=== PATIENT | female | born 1955 | race Asian ===

== ENCOUNTER 2019-12-22 20:55 | Inpatient (IN) | payer OTHER ==
[~2019-12-22] VITALS: Ht 160 cm; Wt 59.7 kg
--- NOTE | 2019-12-22 21:03 | NUR ---
PT DAUGHTER JAYESH JUAREZ [phone] AVAILABLE TO TRANSLATE.
[2019-12-22 21:09] VITALS: Ht 160 cm; Wt 59.7 kg
--- NOTE | 2019-12-22 21:19 | NUR ---
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 PER MEDICS PTS FAMILY REPORT PT WAS EATING DINNER WHEN SHE HAD A SUDDEN LOC. PER MEDICS FAMILY ASSISTED PT OUT OF HER CHAIR TO THE FLOOR. MEDICS DENY ANY REPORTS OF SEIZURE LIKE ACTIVITY. MEDICS REPORT THAT PT HAD ONE EPISODE OF VOMITING. UPON ARRIVAL PT NOTED TO BE COUGHING UP FOOD. PTS LUNG SOUNDS CLEAR TO AUSCULATION. PT O2 SAT 100% ON RA. PT IS ALERT, RESP ARE E/U. NO ACUTE DISTRESS NOTED.
[2019-12-22 21:50] LABS: BASOPHIL % 0.7 % (0-2); PLATELET COUNT 163 x10^3mcL (130-400); RED CELL DISTRIBUTION WIDTH 12.4 % (11.5-14.5)
[2019-12-22 22:12] LABS: ALKALINE PHOSPHATASE 34 U/L (46-116); ALT/SGPT 30 U/L (14-59); AST/SGOT 44 U/L (15-37); BILIRUBIN TOTAL 0.8 mg/dL (0.20-1.00); CALCIUM 8.2 mg/dL (8.5-10.1); CARBON DIOXIDE 23.5 mmol/L (21-32); CHLORIDE SERUM 78 mmol/L (98-107); CREATININE SERUM 0.8 mg/dL (0.6-1.0); GFR1 > 60 mL/min; GLUCOSE SERUM 124 mg/dL (74-106); MAGNESIUM 1.6 mg/dL (1.8-2.4); POTASSIUM SERUM 3.7 mmol/L (3.5-5.1); TOTAL PROTEIN, SERUM 7.5 g/dL (6.4-8.2)
[2019-12-22 22:16] LABS: SODIUM SERUM 111 mmol/L (136-145)
--- NOTE | 2019-12-22 23:52 | NUR ---
GAVE UPDATE TO PTS DAUGHTER JAYESH. INFOMRED JAYESH THAT PT WILL BE ADMITTED INTO THE HOSPITAL. JAYESH VERBALIZES UNDERSTANDING. JAYESH REPORTS THAT PT DOES NOT TAKE ANY DAILY MEDICATIONS AT HOME.
[2019-12-23] VITALS (7 sets, daily range): BP systolic 100–154; BP diastolic 63–91
--- NOTE | 2019-12-23 00:07 | NUR ---
REPORT GIVEN TO ZOILA BISWAS TO ASSUME CARE OF PT.
[2019-12-23 00:18] LABS: CREATININE UR 18.7 mg/dL (0.60-1.80)
[2019-12-23 01:14] LABS: CHOLESTEROL/HDL RATIO 4.2
[2019-12-23 01:18] LABS: FREE T4 0.44 ng/dL (0.76-1.46)
[2019-12-23 01:19] LABS: T3 TOTAL 0.6 ng/mL
--- NOTE | 2019-12-23 01:20 | NUR ---
RECEIVED PATIENT FROM ER NURSE. PATIENT ACCOMPANIED BY ER NURSE. NO ACUTE DISTRESS. UNABLE TO ASSESS ORIENTATION, PATIENT UNWILLING TO SPEAK. USED EXECUTIVE CHAIRMAN PHONES AND PATIENT UNWILLING TO COOPERATE. PATIENT HAS EVEN AND UNLABORED BREATHING, NO S/S OF SOB, CHEST PAIN OR CHEST PRESSURE AT THIS TIME. ROOM AIR. TELE #[address]. NO EDEMA NOTED, PULSES+ X4. NO WOUNDS SEEN ON PATIENT. LUNGS CTA. BOWEL SOUNDS PRESENT X4. ABD SOFT/ROUND, NO S/S OF PAIN UPON PALPATION. NO C/O PAIN AT THIS TIME. RAC IV WNL. FLUSHING WELL AND GOOD BLOOD RETURN. NO ERYTHEMA/EDEMA AT IV SITE. BED IN LOWEST POSITION. CALL LIGHT WITHIN REACH.
[2019-12-23 01:26] LABS: FREE THYROXINE INDEX 0.4 ug/dL (1.4-4.5); T4(THYROXINE) 1.5 ug/dL (4.7-13.3)
--- NOTE | 2019-12-23 02:00 | NUR ---
NOTIFIED DR SINGH ABOUT PATIENTS MAG 1.6 AND NA 111. NO FURTHER ORDERS AT THIS TIME.
--- NOTE | 2019-12-23 04:22 | NUR ---
RAC ACCIDENTLY PULLED OUT BY THE PATIENT. REMOVED AND COVERED WITH GAUZE. TIP INTACT. NO ERYTHEMA/EDEMA AT SITE.
--- NOTE | 2019-12-23 06:09 | NUR ---
PATIENT SLEPT ALL NIGHT, CURRENTLY SLEEPING COMFORTABLY. EVEN AND UNLABORED BREATHING, ON ROOM AIR. NO DISTRESS. FLUIDS INFUSING WELL. TOLERATED MEDICATIONS WELL. TELE #[address] BED IN LOWEST POSITION. CALL LIGHT WITHIN REACH. WILL ENDORSE CARE TO ONCOMING SHIFT. WILL CONTINUE TO MONITOR.
--- NOTE | 2019-12-23 07:30 | NUR ---
PATIENT WAS FOUND AWAKE, BUT DOES NOT ANSWER QUESTIONS. NO OTHER NEUROLOGICAL DEFICIT NOTED. TELE #11, NSR ,DENIES CHEST PAIN. PERIPHERAL PULSES PALPABLE W/ NO SIGNS OF EDEMA. LUNG SOUNDS DIMINISHED BILATERALLY, ON RA, O2 SAT 98%, DENIES SOB. NORMOACTIVE BSX4, ABD SOFT AND FLAT. VOIDS USING RESTROOM. REQUIRES ASSISTANCE IN AMBULATING TO RESTROOM. GENERALIZED WEAKNESS. SKIN IS INTACT. DENIES PAIN OR DISCOMFORT. IV SITE IS CDI. WILL CONTINUE TO MONITOR PATIENT.
[2019-12-23 09:45] LABS: CALCIUM 8.6 mg/dL (8.5-10.1); CARBON DIOXIDE 18.2 mmol/L (21-32); CHLORIDE SERUM 78 mmol/L (98-107); CREATININE SERUM 0.7 mg/dL (0.6-1.0); GFR1 > 60 mL/min; GLUCOSE SERUM 92 mg/dL (74-106); POTASSIUM SERUM 4.3 mmol/L (3.5-5.1)
[2019-12-23 09:52] LABS: SODIUM SERUM 111 mmol/L (136-145)
--- NOTE | 2019-12-23 14:23 | NUR ---
PER DR. BARKER AFTER ASSESSING PATIENT, ORDERED FOR STRICT I&O's, FLUIDS RATE TO DECREASED TO 40 ML/HR, AND BMP TO BE RECHECKED EVERY 3 HOURS. NO FURTHER ORDERS AT THIS TIME
[2019-12-23 16:07] LABS: CALCIUM 7.8 mg/dL (8.5-10.1); CARBON DIOXIDE 21.7 mmol/L (21-32); CHLORIDE SERUM 83 mmol/L (98-107); CREATININE SERUM 0.8 mg/dL (0.6-1.0); GFR1 > 60 mL/min; GLUCOSE SERUM 117 mg/dL (74-106)
[2019-12-23 16:08] LABS: SODIUM SERUM 114 mmol/L (136-145)
--- NOTE | 2019-12-23 18:34 | NUR ---
PATIENT IS CURRENTLY RESTING IN BED AT THIS TIME. PATIENT DENIES ANY PAIN OR DISCOMFORT AT THIS TIME. PATIENT EATS VERY MINIMALLY SHE REFUSES TO EAT MUCH OF HER DINNER. OTHERWISE, PATIENT IS COMFORTABLY AND LAB IS DRAWING Na+ SERUM LEVELS AT THIS TIME. WILL ENDORSE TO FOOD SAFETY OFFICER.
[2019-12-23 19:21] LABS: CALCIUM 7.7 mg/dL (8.5-10.1); CARBON DIOXIDE 23.6 mmol/L (21-32); CHLORIDE SERUM 86 mmol/L (98-107); CREATININE SERUM 0.8 mg/dL (0.6-1.0); GFR1 > 60 mL/min; GLUCOSE SERUM 90 mg/dL (74-106); POTASSIUM SERUM 4.2 mmol/L (3.5-5.1)
[2019-12-23 19:24] LABS: SODIUM SERUM 117 mmol/L (136-145)
--- NOTE | 2019-12-23 19:45 | NUR ---
BEDSIDE REPORT FROM DAY NURSE. PT AWAKE, ALERT TO NAME. PT MADARIN SPEAKING. NO S/S OF DISTRESS OR DISCOMFORT. BRETHING EVEN AT ROOM AIR 98% SPO2. PATIENT DOES HAVE A NON PRODUCTIVE COUGH AT THIS TIME. GEN WEAKNESS, PT ABLE TO WALK TO THE RESTROOM WITH ASSISTANCE. IV RH 22G, INTACT RUNNINF FLUIDS, NO S/S OF INFILTRATION. TELE 11 NSR AT THIS TIME. NO WOUNDS SKIN INTACT CLEAR. STRONG PEDAL AND RADIAL PULSES. NO EDEMA. BED IN LOW POSITION, SIDE RAILS UPX2, CALL LIGHT WITHIN REACH.
[2019-12-23 22:15] LABS: CALCIUM 7.7 mg/dL (8.5-10.1); CARBON DIOXIDE 21.6 mmol/L (21-32); CHLORIDE SERUM 88 mmol/L (98-107); CREATININE SERUM 0.8 mg/dL (0.6-1.0); GFR1 > 60 mL/min; GLUCOSE SERUM 110 mg/dL (74-106)
[2019-12-23 22:18] LABS: SODIUM SERUM 119 mmol/L (136-145)
--- NOTE | 2019-12-24 02:14 | NUR ---
PT RESTING , EYES CLOSED. BREATHING EVEN ON RA. LUNGS CTA SPO2 97% TELE 11 SR AT THIS TIME. IV RH C/D/I RUNNING FLUIDS. PT ABLE TO USE THE CALL LIGHT WHEN SHE NEED ASSISTANCE TO THE RESTROOM. BED IN LOW POSITION, SIDE RAILS UPX2, CALL LIGHT WITHIN REACH, ROOM CLUTTER FREE.
--- NOTE | 2019-12-24 06:22 | NUR ---
PT RESTING EYES CLOSED. NO S/S OF DISTRESS OR DISCOMFORT. IV INTACT RUNNING FLUIDS 40ML/HR. PT BREATHING EVEN ON RA SPO2 98% PT ABLE TO USE THE CALL LIGHT TO ASK FOR HELP TO THE RESTROOM. NO REPORTS FROM TELE. NSR. BED IN LOW POSITION, SIDE RAILS UPX2, CALL LIGHT WITHIN REACH.
[2019-12-24 06:25] VITALS: BP 98/58
--- NOTE | 2019-12-24 07:30 | NUR ---
PATIENT IS A&OX4, FOLLOWS COMMANDS AND COOPERATES WELL. TELE #11, NSR, DENIES CHEST PAIN. PERIPHERAL PULSES PALPABLE W/ NO SIGNS OF EDEMA. LUNG SOUNDS DIMINISHED BILATERALLY, HAS COUGH, ON RA, O2 SAT 98%. NORMOACTIVE BSX4, ABD SOFT AND FLAT, DENIES ABD PAIN. VOIDS USING URINAL. AMBULATES WITH ASSIST. GENERALIZED WEAKNESS. SKIN IS CDI. DENIES PAIN OR DISCOMFORT AT THIS TIME. IV 3% NaCl IS INFUSING AT THIS TIME. R HAND IV IS CDI. WILL CONTINUE TO MONITOR PATIENT.
[2019-12-24 07:40] LABS: CARBON DIOXIDE 20.4 mmol/L (21-32); CHLORIDE SERUM 95 mmol/L (98-107); CREATININE SERUM 0.7 mg/dL (0.6-1.0); GFR1 > 60 mL/min; GLUCOSE SERUM 78 mg/dL (74-106); POTASSIUM SERUM 4.1 mmol/L (3.5-5.1); SODIUM SERUM 127 mmol/L (136-145)
[2019-12-24 08:46] VITALS: BP 104/60
[2019-12-24 10:49] LABS: MAGNESIUM 2.2 mg/dL (1.8-2.4); PHOSPHOROUS 2.7 mg/dL (2.5-4.9)
[2019-12-24 10:57] LABS: BASOPHIL % 0.4 % (0-2); PLATELET COUNT 194 x10^3mcL (130-400); RED CELL DISTRIBUTION WIDTH 12.7 % (11.5-14.5)
--- NOTE | 2019-12-24 11:39 | NUR ---
PATIENT'S DAUGHTER CALLED AND INQUIRED PATIENT STATUS. ALL QUESTIONS AND CONCERNS HAVE BEEN ADDRESSED. PATIENT DENIES ANY PAIN OR DISCOMFORT AT THIS TIME. WILL CONTINUE TO MONITOR PATIENT.
[2019-12-24 13:18] VITALS: BP 131/72
--- NOTE | 2019-12-24 14:08 | NUR ---
DR. SOLIMAN VISITED PATIENT ASSESSED PATIENT STATUS. ALL QUESTIONS AND CONCERNS HAVE BEEN ADDRESSED. ORDERED STAT BMP AND PLACED AN ORDER FOR BMP TO BE CHECKED TOMORROW MORNING. NO FURTHER ORDERS AT THIS TIME.
[2019-12-24 15:02] LABS: CALCIUM 8.2 mg/dL (8.5-10.1); CARBON DIOXIDE 20.4 mmol/L (21-32); CHLORIDE SERUM 94 mmol/L (98-107); CREATININE SERUM 0.8 mg/dL (0.6-1.0); GFR1 > 60 mL/min; GLUCOSE SERUM 115 mg/dL (74-106); POTASSIUM SERUM 3.9 mmol/L (3.5-5.1); SODIUM SERUM 126 mmol/L (136-145)
[2019-12-24 16:45] VITALS: BP 105/59
[2019-12-24 18:29] LABS: CALCIUM 8.1 mg/dL (8.5-10.1); CARBON DIOXIDE 22.2 mmol/L (21-32); CHLORIDE SERUM 93 mmol/L (98-107); CREATININE SERUM 0.9 mg/dL (0.6-1.0); GFR1 > 60 mL/min; GLUCOSE SERUM 110 mg/dL (74-106); POTASSIUM SERUM 4.2 mmol/L (3.5-5.1); SODIUM SERUM 126 mmol/L (136-145)
--- NOTE | 2019-12-24 18:41 | NUR ---
PATIENT IS CURRENTLY RESTING IN BED AT THIS TIME. PATIENT DENIES ANY PAIN OR DISCOMFORT. WILL CONTINUE TO MONITOR PATIENT.
--- NOTE | 2019-12-24 19:57 | NUR ---
REPORT FROM DAY RN. PT BREATHING EVEN ON RA, NO S/S OF DISTRESS OR DISCOMFORT. AXOX4, MADARIN SPEAKING. IV SL RIGHT HAND. TELE 11 NSR AT THIS TIME. NO C/O PAIN. ACTIVE BOWEL SOUNDS. AMBULATES TO RESTROOM WITH ASSISTANCE. SPEEAKS TO FAMILY MEMBERS ON THE PHONE. SODIUM IS IMPROVING 126. MODERATE PEDAL AND RADIAL PULSES. BED IN LOW POSITION, SIDE RAILS UPX2, CALL LIGHT WITHIN REACH.
[2019-12-24 21:40] VITALS: BP 113/63
--- NOTE | 2019-12-25 00:03 | NUR ---
PT RESTING. EYES CLOSED. NO S/S OF DISTRESS OR DISCOMFORT. BREATHING EVEN ON RA 99% TELE 11 SR. AMBULATES TO THE RESTROOM. WILL CONTINUE TO MONITOR PATIENT AND OFFER SUPPORT.
--- NOTE | 2019-12-25 05:21 | NUR ---
PT RESTING EYES CLOSED. BREATHING EVEN UNLABORED ON RA 99% TELE SHOWS NSR, PT AMBULATES TO THE RESTROOM. ALERT AND ORIENTED. USES THE CALL LIGHT FOR ASSISTANCE TO THE RESTROOM. IV SL RIGHT HAND. NO S/S OF DISTRESS OR DISCOMFORT. BED IN LOW POSITION, SIDE RAILS UPX2, CALL LIGHT WITHIN REACH. WILL CONTINUE TO MONITOR PATIENT AND OFFER SUPPORT.
[2019-12-25 05:35] VITALS: BP 139/71
[2019-12-25 07:03] LABS: CALCIUM 8.3 mg/dL (8.5-10.1); CARBON DIOXIDE 25.2 mmol/L (21-32); CHLORIDE SERUM 95 mmol/L (98-107); CREATININE SERUM 0.8 mg/dL (0.6-1.0); GFR1 > 60 mL/min; GLUCOSE SERUM 78 mg/dL (74-106); POTASSIUM SERUM 4.1 mmol/L (3.5-5.1); SODIUM SERUM 127 mmol/L (136-145)
[2019-12-25 09:33] VITALS: BP 131/64
--- NOTE | 2019-12-25 10:55 | NUR ---
Recieved report from RN at approximately 0715. patient resting in bed, mandarin speaking. will assess patient with licensed plumber phone. will continue to monitor
[2019-12-25 11:57] VITALS: BP 101/62
[2019-12-25 13:38] LABS: CALCIUM 8.5 mg/dL (8.5-10.1); CARBON DIOXIDE 27.3 mmol/L (21-32); CHLORIDE SERUM 91 mmol/L (98-107); CREATININE SERUM 0.9 mg/dL (0.6-1.0); GFR1 > 60 mL/min; GLUCOSE SERUM 78 mg/dL (74-106); POTASSIUM SERUM 3.9 mmol/L (3.5-5.1); SODIUM SERUM 125 mmol/L (136-145)
[2019-12-25] MEDS ORDERED: SYN75 PO (14:26)
[2019-12-25 17:25] VITALS: BP 136/79
--- NOTE | 2019-12-25 17:41 | NUR ---
PATIENT A&OX4, MANDARIN SPEAKING ONLY, CHITIMACHA, USES HEARING AIDS BUT NOT AT BEDSIDE CURRENTLY, ROOM AIR, VITALS STABLE, UP AD MANINDER, VOIDS, STRICT I&O, TOLERATING DIET WITH GOOD APPETITE TODAY. 1.2 lITER FLUID RESTRICTION, PATIENT C/O CONSTIPATION, COLACE GIVEN AND ENCOURAGED AMBULATION. NA REMAINS LOW AT 125, DR. SOLIMAN AT BEDSIDE TO ASSESS PATIENT. NEW ORDER OF 3%NS AT 50ML FOR 5 HOURS ADMINISTERED AT 1600. STAT NA RECHECK POST INFUSION. SALT TABS TO START TONIGHT. PATIENT UP AD MANINDER. NO COMPLAINTS. CALL LIGHT AND BEDSIDE TABLE WITHIN REACH. NEEDS ATTENDED. PLAN FOR D/C TOMORROW IF NA STABLE. WILL CONTINUE TO MONITOR
--- NOTE | 2019-12-25 19:53 | NUR ---
REPORT FROM DAY RN. PT AXOX4. NO S/S OF DISTRESS OR DISCOMFORT. BREATHING EVEN ON ROOM AIR 99% SPO2. TELE 11 NSR NO CP AMBULATES TO RESTROOM. IV RUNNING R HAND 3% NS @ 50ML/HR. STRONG RADIAL AND PEDAL PULSES. ABD NON TENDER SOFT AND ROUND. WILL CONTINUE TO MONITOR PATIENT AND OFFER SUPPORT.
[2019-12-25 21:00] VITALS: BP 126/65
--- NOTE | 2019-12-25 23:17 | NUR ---
WENT INTO THE ROOM TO D/C THE FLUIDS. I FOUND THE PATIENT IN THE RESTROOM URINATING. THE POTTY HAT WAS IN THE WASTE BIN. PT DISCONNETED HERSELF FROM THE IV FLUIDS. PT WAS ASSISTED BACK TO THE BED, IV FLUSHED. RASHEL BISWAS, WAS ABLE TO SPEAK TO HER IN MADARIN TO USE THE CALL LIGHT FOR ASSISTANCE AND WE WILL PUT A BEDSIDE COMMODE NEXT TO HER BED TO MONITOR URINE OUTPUT BETTER.
--- NOTE | 2019-12-25 23:33 | NUR ---
PT RESTING. EYES OPEN . NO S/S OF DISTRESS OR DISCOMFORT. BREATHING EVEN ON RA 99% SPO2. IV REPALCED TO LAC. TELE 11 , NSR AT THIS TIME. BED IN LOW POSITION, SIDE RAILS UPX2, CALL LIGHT WITHIN REACH. PT AMBULATES TO RESTROOM. ENCOURAGED TO USE CALL LIGHT.
[2019-12-26 00:01] LABS: CALCIUM 8.4 mg/dL (8.5-10.1); CARBON DIOXIDE 25.8 mmol/L (21-32); CHLORIDE SERUM 93 mmol/L (98-107); CREATININE SERUM 0.8 mg/dL (0.6-1.0); GFR1 > 60 mL/min; GLUCOSE SERUM 94 mg/dL (74-106); POTASSIUM SERUM 4.2 mmol/L (3.5-5.1); SODIUM SERUM 126 mmol/L (136-145)
--- NOTE | 2019-12-26 02:30 | NUR ---
CALL MATT UNGER TO NOTIFY HIM OF PATIENTS SODIUM <130 126.
--- NOTE | 2019-12-26 03:56 | NUR ---
DR. LARIOS AWARE OF SODIUM 126.
--- NOTE | 2019-12-26 04:56 | NUR ---
SECOND PAGE TO FOR SODIUM LEVEL 126
[2019-12-26 05:30] VITALS: BP 136/71
--- NOTE | 2019-12-26 06:19 | NUR ---
PT RESTING. EYES OPEN. AXOX4. NO S/S OF DISTRESS OR DISCOMFORT. IV LFA, SL NO S/S OF INFILTRATION. PT BREATHING EVEN ON RA 99%SPO2. TELE 11 NSR. NO CP. PT STRICT I/O. FLUID RESTRICTION 1200. LEFT TWO MESSAGES FOR MATT UNGER, SODIUM 126. DR. LARIOS IS AWARE OF LEVELS. PT CALM AND COOPERATIVE AT THIS TIME. BED IN LOW POSITION, SIDE RAILS UPX2, CALL LIGHT WITHIN REACH.
[2019-12-26 07:27] LABS: BASOPHIL % 0.4 % (0-2); PLATELET COUNT 193 x10^3mcL (130-400); RED CELL DISTRIBUTION WIDTH 12.8 % (11.5-14.5)
--- NOTE | 2019-12-26 07:30 | NUR ---
RECEIVED REPORT FROM PM RN, PT IN BED, IN NO ACUTE DISTRESS, CALM AND COOPERATIVE, NO FACIAL DROOP/SLURRED SPEECH, PERRLA, GLASSES, RESP E/U, RA, 96%, LUNGS CTAB, ABD FLAT/NON-TENDER, BS ACTIVE X 4, IV PATENT, DRESSING CDI, SKIN C.D.W, AMB, CONTINENT, BRP, PALP PUSLES, CAP REFILL < 2S, SEE SHIFT ASSESSMENT, DENIED PAIN/DISCOMFRT, DENIED CP/PALPITATION, DENIED SORTO/N/V/D, TELE, SR, HR-75 AT THIS TIME, ALL NEEDS ADDRESSED, SAFETY PROTOCOL FOLLOWED, COTNINUE TO MONITOR
[2019-12-26 07:35] LABS: CALCIUM 8.4 mg/dL (8.5-10.1); CARBON DIOXIDE 25.6 mmol/L (21-32); CHLORIDE SERUM 91 mmol/L (98-107); CREATININE SERUM 0.8 mg/dL (0.6-1.0); GFR1 > 60 mL/min; GLUCOSE SERUM 75 mg/dL (74-106); POTASSIUM SERUM 4.4 mmol/L (3.5-5.1); SODIUM SERUM 126 mmol/L (136-145)
--- NOTE | 2019-12-26 10:07 | NUR ---
AM MED GIVEN PER MD ORDER, TOLERATED WELL, NO ASE NOTED AT THIS TIME, EDUCATED PT R/T MED, ASE AND MONITOR, SPECIAL ORDER JEWELER USED, SEEN BY , NNO AT THIS TIME, MD AWARE OF PT NONCOMPLIANT W/ FLUID RESTRICTION 1200ML/DAY PER LOW SODIUM CONDITION, NNO, BM X 1, MEDIUM, ALL NEEDS ADDRESSED, SAFETY PROTOCOL FOLLOWED, CONTINUE TO MONITOR
[2019-12-26 10:51] VITALS: BP 106/61
--- NOTE | 2019-12-26 11:56 | NUR ---
DR SOLIMAN CALLED AND AWARE OF PT TODAY LAB, NEW ORDER OBTAINED, DR CAMPBELL AWARE OF PT NON-COMPLIANT W/ FLUID RESTRICTION ORDER AND STRICT I&O MONITOR, PER DR. SOLIMAN PT WILL BE ON 1 L/DAY FLUID RESTRICTION AT THIS TIME, PT AWARE, VERBALLY UNDERSTANDING, GRADES 9 THROUGH 12 TEACHER USED, CHARGE NURSE AWARE, CONTINEU TO MONITOR
--- NOTE | 2019-12-26 12:43 | NUR ---
PT SLEEPING IN BED, IN NO APPARENT ACUTE DISTRESS, IV PATENT, TOLERATED LUNCH WELL, ALL NEEDS ADDRESSED, PT AWARE OF 1000 ML/DAY PER DR SOLIMAN ORDER, STRICT I&O, CONTINUE TO MONITOR
[2019-12-26 13:15] VITALS: BP 138/76
[2019-12-26 13:25] VITALS: BP 117/69
--- NOTE | 2019-12-26 16:41 | NUR ---
CALLED LAB AND REMIND OF STAT ORDER OF BMP, SAID WILL COME TO COLLECT BLOOD SAMPLE FOR LAB PER MD ORDER, PT AWARE, CHARGE NURSE ADARSH AWARE, CONTINUE TO MONITOR
[2019-12-26 16:52] LABS: CALCIUM 8.2 mg/dL (8.5-10.1); CARBON DIOXIDE 26.2 mmol/L (21-32); CHLORIDE SERUM 94 mmol/L (98-107); CREATININE SERUM 0.9 mg/dL (0.6-1.0); GFR1 > 60 mL/min; GLUCOSE SERUM 107 mg/dL (74-106); POTASSIUM SERUM 4.4 mmol/L (3.5-5.1); SODIUM SERUM 128 mmol/L (136-145)
[2019-12-26 17:31] VITALS: BP 137/77
--- NOTE | 2019-12-26 17:37 | NUR ---
PT RESTING IN BED, IN NO ACUTE DISTRESS, RESP E/U, RA, NO SOB/COUGH/WHEEZING, TELE, HR - 68 AT THIS TIME, IV PATENT, DRESSING CDI, ABD FLAT/NON-TENDER TO TOUCH, BS ACTIVE, AMBULATORY, CONTINENT, BRP, DENIED PAIN/DISCOMFRT, DENIED CP/PALPITATION, DENIED SORTO/N/V/D, TOLERATED DINNER WELL, OK TO HAVE HOME FOOD PER MD ORDER WIHT NO FREE WATER, STRICT I&O, FLUID RESTRICTION 1000 ML/DAY, ALL NEEDS ADDRESSED, SAFETY PROTOCOL FOLLOWED, WILL ENDORSE TO ONCOMING RN
[2019-12-26 19:30] VITALS: BP 110/57
--- NOTE | 2019-12-26 19:35 | NUR ---
RECEIVED PT FROM AM NURSE. PT AAOX4, ABLE TO FOLLOW COMMANDS AND MAKE NEEDS KNOWN. PT DENIES ANY SORTO/DIZZINESS. SZ PRECAUTIONS IN PLACE. TELE#11 READING SR, DENIES CP/PRESSURE AT THIS TIME. PALPABLE PULSES TO ALL EXTREMETIES. NO EDEMA NOTED. LUNG SOUNDS CTA, BREATHING EVEN AND UNLABORED ON RA. NO SOB NOTED. ABD SOFT AND NONDISTENDED, ACTIVE BS X4 QUAD. DENIES N/V/D. VOIDS FREELY. GENERALIZED WEAKNESS. AMBULATORY. IV TO LFA PATENT AND INTACT. SITE WNL. NO ACUTE DISTRESS NOTED. BED AT LOWEST SETTING. SIDE RAILS X2 UP. CALL LIGHT WITHING REACH. WILL CONT TO MONITOR.
--- NOTE | 2019-12-27 01:06 | NUR ---
PT RESTING COMFORTABLY IN BED, BREATHING EVEN AND UNLABORED ON RA. NO ACUTE DISTRESS NOTED. SAFETY PRECAUTIONS IN PLACE. CALL LIGHT WITHING REACH. WILL CONT TO MONITOR.
[2019-12-27 06:27] VITALS: BP 120/74
--- NOTE | 2019-12-27 06:46 | NUR ---
PT SLEPT WELL THROUGHOUT THE NIGHT, BREATHING EVEN AND UNLABORED ON RA. NO SIGNIFICANT CHANGE DURING SHIFT. NO SEIZURE ACTIVITY NOTED. ALL NEEDS ASSESSED AND ATTENDED TO. NO ACUTE DISTRESS NOTED. SZ PRECAUTIONS IN PLACE. SAFETY PRECAUTIONS IN PLACE. CALL LIGHT WITHING REACH. WILL CONT TO MONITOR AND ENDORSE CARE TO AM NURSE.
--- NOTE | 2019-12-27 07:12 | NUR ---
RECEIVED PT FROM TOOL ADJUSTER NURSE. PT RESTING IN BED, AOX4, RESP E/U ON RA. NO ACUTE DISTRESS NOTED AT THIS TIME. ON TELE 11 SHOWING NSR, HR: 78. IV SALINE LOCK TO LFA W/ NO ERYTHEMA/EDEMA. BED IN LOWEST POSITION AND CALL LIGHT WITHIN REACH. WILL CONTINUE TO MONITOR.
[2019-12-27 07:14] LABS: BASOPHIL % 0.4 % (0-2); PLATELET COUNT 221 x10^3mcL (130-400); RED CELL DISTRIBUTION WIDTH 12.9 % (11.5-14.5)
[2019-12-27 07:31] LABS: CALCIUM 9.2 mg/dL (8.5-10.1); CARBON DIOXIDE 28.1 mmol/L (21-32); CHLORIDE SERUM 92 mmol/L (98-107); CREATININE SERUM 0.8 mg/dL (0.6-1.0); GFR1 > 60 mL/min; GLUCOSE SERUM 86 mg/dL (74-106); MAGNESIUM 1.7 mg/dL (1.8-2.4); PHOSPHOROUS 5.3 mg/dL (2.5-4.9); POTASSIUM SERUM 4.4 mmol/L (3.5-5.1); SODIUM SERUM 129 mmol/L (136-145)
[2019-12-27 09:33] VITALS: BP 131/64
[2019-12-27 12:38] VITALS: BP 113/66
[2019-12-27 16:21] VITALS: BP 105/55
--- NOTE | 2019-12-27 19:00 | NUR ---
RECEIVED REPORT FROM PAM BISWAS. PT AAOX4 AND MANDARIN SPEAKING ONLY. PT DENIES SORTO/DIZZINESS. PT ON TELE #11, ACCELERATED JUNCTIONAL WITH HR 64. PT DENIES CP/PRESSURE. PT PULSES PALPABLE AND CAP REFILL <3 SEC. PT LUNG SOUNDS CTA ON RA. PT DENIES SOB OR RESP DISTRESS. PT ABD SOFT/ROUND WITH ACTIVE BS X4. PT DENIES N/V/C/D. PT VOIDS FREELY WITH BRP. PT HAS GENERALIZED WEAKNESS, BUT IS AMBULATORY. PT HAS ECCHYMOSIS NOTED TO BUE. PT DENIES S/S OF PAIN OR DISCOMFORT AT THIS TIME. PT IV PATENT/INTACT/SL. ALL NEEDS MET. CALL LIGHT WITHIN REACH. BED IN LOWEST POSITION. SIDE RAILS X2 UP. WILL CONTINUE TO MONITOR.
--- NOTE | 2019-12-27 19:22 | NUR ---
PT RESTING IN BED, AOX4, RESP E/U ON RA. NO ACUTE DISTRESS NOTED AT THIS TIME. IV TO LFA PATENT/INTACT, WNL. BED IN LOWEST POSITION AND CALL LIGHT WITHIN REACH. CARE ENDORSED TO TRUE ROBLERO.
[2019-12-27 21:56] VITALS: BP 120/63
--- NOTE | 2019-12-28 02:55 | NUR ---
PT RESTING COMFORTABLY WITH EYES CLOSED, EASILY AROUSABLE. NO ACUTE DISTRESS NOTED. PT BREATHING E/U ON RA. ALL NEEDS MET. WILL CONTINUE TO MONITOR.
[2019-12-28 05:30] VITALS: BP 126/63
--- NOTE | 2019-12-28 06:39 | NUR ---
PT RESTED COMFORTABLY THROUGHOUT THE NIGHT, EASILY AROUSABLE. NO ACUTE DISTRESS NOTED. PT BREATHING E/U ON RA. PT DENIES SOB OR RESP DISTRESS. ALL NEEDS MET. COMFORT AND SAFETY MEASURES MAINTAINED. CALL LIGHT WITHIN REACH. BED IN LOWEST POSITION. SIDE RAILS X2 UP. WILL ENDORSE TO DAY SHIFT NURSE.
[2019-12-28 07:06] LABS: BASOPHIL % 0.5 % (0-2); PLATELET COUNT 211 x10^3mcL (130-400); RED CELL DISTRIBUTION WIDTH 13.1 % (11.5-14.5)
--- NOTE | 2019-12-28 07:40 | NUR ---
RECEIVED PATIENT RESTING IN BED, NO ACUTE DISTRESS NOTED. PATIENT AAOX4, DENIES PAIN AT THIS TIME. TELE MONITOR IN PLACE, DENIES CHEST PAIN. PATIENT DENIES SOB, ON ROOM AIR. PATIENT VOIDS FREELY, DENIES DYSURIA. ECCHYMOSIS NOTED TO BUE. IV TO LFA CDI & PATENT, FREE FROM EDEMA AND ERYTHEMA. CALL LIGHT WITHIN REACH, BED IN LOW POSITION, WILL CONTINUE TO MONITOR.
[2019-12-28 07:52] LABS: CALCIUM 8.8 mg/dL (8.5-10.1); CARBON DIOXIDE 26.3 mmol/L (21-32); CHLORIDE SERUM 90 mmol/L (98-107); CREATININE SERUM 0.7 mg/dL (0.6-1.0); GFR1 > 60 mL/min; GLUCOSE SERUM 88 mg/dL (74-106); MAGNESIUM 1.6 mg/dL (1.8-2.4); POTASSIUM SERUM 4.5 mmol/L (3.5-5.1); SODIUM SERUM 126 mmol/L (136-145)
[2019-12-28 09:30] VITALS: BP 123/60
[2019-12-28] MEDS ORDERED: LIPI20 PO (10:22)
[2019-12-28] MEDS ORDERED: MECLIZINE HCL12.5 MG PO (10:22)
[2019-12-28] MEDS ORDERED: ECO81 PO (10:22)
[2019-12-28] MEDS ORDERED: SOD1 PO (10:23)
--- NOTE | 2019-12-28 11:50 | NUR ---
PATIENT DAUGHTER JAYESH MADE AWARE PT WILL BE DISCHARGE TODAY, JAYESH GAVE PATIENTS PREFERRED PHARMACIST ([facility] OFF [facility] WILL ADD TO PATIENTS PREFERRED PHARMACY AT THIS TIME.
[2019-12-28 13:04] VITALS: BP 118/67
[2019-12-28 15:40] VITALS: BP 118/67
--- NOTE | 2019-12-28 16:22 | NUR ---
WENT OVER PATIENTS DISCHARGE INSTRUCTIONS WITH DAUGHTER JAYESH. JAYESH UNDERSTANDS AND AGREES WITH DISCHARGE INSTRUCTIONS AND PLAN OF CARE, INCLUDING MEDICATIONS AND FOLLOW UP CARE. ALL QUESTIONS AND CONCERNS ADDRESSED. JAYESH MADE AWARE PATIENT WILL LEAVE WITH DISCHARGE PAPER WORK.
--- NOTE | 2019-12-28 16:45 | NUR ---
PATIENT RECEIVED COPY OF DISCHARGE INSTRUCTIONS. IV TO LFA REMOVED, CATH INTACT. TELE MONITOR REMOVED AND RETURNED. PATIENT TAKEN DOWN VIA WHEEL CHAIR BY CLARISSA.
== END 2019-12-28 16:42 | disposition home or self-care (01) | DRG 427 ==
LOC: ED 20:55 → DU 23:46
PROVIDERS: Emergency Medicine; Family Medicine; Internal Medicine Nephrology; ADMIT Internal Medicine; ATTEND Internal Medicine
DX: E03.9 Hypothyroidism, unspecified (principal); G93.41 Metabolic encephalopathy; E83.42 Hypomagnesemia; E83.51 Hypocalcemia; E87.1 Hypo-osmolality and hyponatremia; R55 Syncope and collapse; E78.5 Hyperlipidemia, unspecified; E86.9 Volume depletion, unspecified; Z79.82 Long term (current) use of aspirin; Z79.899 Other long term (current) drug therapy
CPT/HCPCS: 83880; 84439; 97116-GP; 97530-GP; G0378; J3475; J7030; Q0092